=== PATIENT | female | born 1970 ===

== ENCOUNTER 2020-05-20 12:33 | Outpatient (REF) | payer MEDICAID, SELFPAY | END 2020-05-20 12:34 | disposition home or self-care (01) | LOC: HO.LAB 12:33 | PROVIDERS: PCP Internal Medicine; Visit Provider Internal Medicine | DX: Z20.828 Contact with and (suspected) exposure to other viral communicable diseases (principal) | CPT/HCPCS: 87635 ==

== ENCOUNTER 2023-12-27 13:39 | Outpatient (AMB) | payer MEDICAID, SELFPAY ==
--- NOTE | 2023-12-27 13:40 | MHC.OFFVIS ---
Vital Signs 12/27/23 14:01 Height 5 ft 2 in Weight 155 lb 6 oz BMI 28.4 BP 98/70 Blood Pressure Location Lt brachial Position Sitting Pulse 84 Pulse Source Pulse Oximeter Pulse Oximetry (%) 93 Oxygen Delivery Method Room Air Intake Visit Reasons: ENP-Chronic Insomnia-Unable to lvm Intake Note: Patient presents for chronic Insomnia. Difficulty falling asleep and staying at sleep. Snoring sometimes. Sometimes when sleeping on my back I gasp for air. Feel pins on my legs. I got a CPAP machine a few years ago but no mask. Never follow up to get mask and don't remember the company name. Allergies sumatriptan [From [facility]] Allergy (Intermediate, Unverified 04/22/20 18:34) ITCHING Medication List - Last Reconciled 12/27/23 by KEVIN Moe atorvastatin 20 mg PO DAILY duloxetine 30 mg PO DAILY escitalopram oxalate 10 mg PO DAILY olanzapine 5 mg PO BEDTIME omeprazole 40 mg PO DAILY topiramate 25 mg PO BID warfarin 5 mg PO DAILY zolpidem 10 mg PO BEDTIME PRN HPI Comments Details: 53-yr-old female presents for new in-person patient visit for sleep consultation. Pt reports she has had difficulty sleeping ever since she went through [facility] for breast CA tx 10 yrs ago. She has difficulty both w/ initiating and maintaining sleep. Since, she has been on Ambien (now 10mg) since the chemotherapy tx. The Ambien used to work, but it is not working as well- does not make her sleep. Sleep questionnaire: Have you ever been diagnosed with a sleep disorder? Yes Have you ever had a sleep study in the past? Yes- an in-lab PSG- was given a CPAP > 5 yrs ago, but was never given a mask so could not use it. Have you ever been treated for a sleep disorder? Yes Do you take medications for a sleep disorder? Melatonin 1-2 hr before bed- did not help. Amitriptyline 25mg- ineffective. Trazodone, Gabapentin- ineffective. Using Topiramate 25mg bid- for migraine- usually no migraines if she takes it consistently or if not stressed- does not m make her sleepy. Do you snore? Yes Do you wake up gasping at night? Has Do you have episodes of apneas? Yes If yes, are they witnessed? Yes Do you have episodes of nocturnal chest pain or dyspnea? No Do you have difficulty initiating sleep? Yes Do you have difficulty maintaining sleep? Yes Do you wake up tired? Yes Do you have headaches upon awakening? Sometimes Do you wake up with dry mouth or throat? Yes Do you have GERD? Yes Do you have daytime tiredness or fatigue? Yes Do you have nocturnal leg cramps? Yes- at times Do you have symptoms of restless legs? She is prone to restless legs- has to move, like there are pins in her legs, sometimes has creepy crawling sensation. Endorses this can interfere w/ her sleep. Has anemia. Do you act out your dreams? Sometimes talks in her sleep. Some vivid dreams. Other parasomnias: Denies sleep paralysis. Sleep hygiene questionnaire: What is your usual sleep routine? Usual bedtime is at after 12am; Usual wakeup time is at around 11am- but has a hard time waking up. Do you take naps? Only if she has a migraine. Is your sleep environment cool, dark, and quiet? It is dark Do you exercise? None Do you take caffeine or other stimulants? Coke- a lot - last serving around 10pm Do you use electronics in bed? Watches TV- usually as background noise. What is your work schedule? Not working. Tries to schedule things later. Hypersomnolence questionnaire: Do you easily fall asleep when inactive? Have you ever had episodes of sudden weakness? A few months ago- she just fainted- twice back to back. She is clumsy and drops things- has shannon CTS. Have you ever had episodes of sudden weakness associated with strong emotions? Has not noticed. [facility] Surgical History (Updated 10/03/21 @ 15:26 by Nena Webber) H/O tubal ligation H/O lumpectomy Family History (Updated 12/27/23 @ 14:00 by Ashanti Canada CMA) Maternal Grandmother Dementia Social History (Updated 12/27/23 @ 14:01 by Ashanti Canada CMA) Household Members: Children Housing: House Alcohol intake: current Comment: Ocassionally Patient Tobacco Use Status: Never used Tobacco Physical Exam Vital Signs: Last Vital Signs Pulse 84 12/27/23 14:01 BP 98/70 12/27/23 14:01 Pulse Ox 93 12/27/23 14:01 Oxygen Delivery Method Room Air 12/27/23 14:01 BMI result Body Mass Index 28.4 Const General: no acute distress Orientation/consciousness: patient oriented x3 Resp Effort & Inspection: able to speak in complete sentences Neuro General: patient oriented x3 Psych Mental Status: mental status grossly normal Speech and movement: Clear speech present Attitude: cooperative Assessment & Plan Assessment & Plan (1) Snoring: Code(s): R06.83 - Snoring Category: Medical (2) Sleep difficulties: Code(s): G47.9 - Sleep disorder, unspecified Category: Medical (3) Restless leg syndrome: Code(s): G25.81 - Restless legs syndrome Category: Medical (4) Fatigue: Comment: ESS is 6, however pt spends > 10-11 hrs in bed per day Code(s): R53.83 - Other fatigue Category: Medical (5) Leg cramps: Code(s): R25.2 - Cramp and spasm Category: Medical Plan Trial Pregabalin 50mg cap, 1-3 caps qhs (or alternately 1 cap 2 hrs before bed and 1-2 caps at bedtime)- in hopes this alleviates RLS s/s and thus promotes improved sleep efficiency and reducing need for prolonged time in bed/sleep need. This may help headaches as well. Discussed strategies to optimize sleep hygiene- reducing Coke or caffeine intake to no later than 6 hrs before bedtime. Pt advised to undergo: Labs to check for common etiologies for RLS s/s. In-lab PSG to assess for sleep apnea and PLMS. If syncopal episode reoccurs- pt will need syncopal work-up. Pt seen in c/w Dr Rayna Lopez. Orders: Orders Complete Blood Count Auto Diff 12/27/23 D64.9 - Anemia, unspecified, F32.A - Depression, unspecified, G25.81 - Restless legs syndrome, M25.50 - Pain in unspecified joint, R25.2 - Cramp and spasm, R53.83 - Other fatigue Methylmalonic Acid 12/27/23 D64.9 - Anemia, unspecified, F32.A - Depression, unspecified, G25.81 - Restless legs syndrome, M25.50 - Pain in unspecified joint, R25.2 - Cramp and spasm, R53.83 - Other fatigue Homocysteine 12/27/23 D64.9 - Anemia, unspecified, F32.A - Depression, unspecified, G25.81 - Restless legs syndrome, M25.50 - Pain in unspecified joint, R25.2 - Cramp and spasm, R53.83 - Other fatigue IRON PROFILE 12/27/23 D64.9 - Anemia, unspecified, F32.A - Depression, unspecified, G25.81 - Restless legs syndrome, M25.50 - Pain in unspecified joint, R25.2 - Cramp and spasm, R53.83 - Other fatigue Ferritin 12/27/23 D64.9 - Anemia, unspecified, F32.A - Depression, unspecified, G25.81 - Restless legs syndrome, M25.50 - Pain in unspecified joint, R25.2 - Cramp and spasm, R53.83 - Other fatigue CRP High Sensitivity 12/27/23 D64.9 - Anemia, unspecified, F32.A - Depression, unspecified, G25.81 - Restless legs syndrome, M25.50 - Pain in unspecified joint, R25.2 - Cramp and spasm, R53.83 - Other fatigue DAMIR Reflex Titer and Pattern 12/27/23 D64.9 - Anemia, unspecified, F32.A - Depression, unspecified, G25.81 - Restless legs syndrome, M25.50 - Pain in unspecified joint, R25.2 - Cramp and spasm, R53.83 - Other fatigue Hemoglobin A1c 12/27/23 D64.9 - Anemia, unspecified, F32.A - Depression, unspecified, G25.81 - Restless legs syndrome, M25.50 - Pain in unspecified joint, R25.2 - Cramp and spasm, R53.83 - Other fatigue RT PSG in-lab sleep study 12/27/23 G25.81 - Restless legs syndrome, G47.9 - Sleep disorder, unspecified, R06.83 - Snoring, R53.83 - Other fatigue Comprehensive Met. Panel 12/27/23 D64.9 - Anemia, unspecified, F32.A - Depression, unspecified, G25.81 - Restless legs syndrome, M25.50 - Pain in unspecified joint, R25.2 - Cramp and spasm, R53.83 - Other fatigue Vitamin B12 and Folate 12/27/23 D64.9 - Anemia, unspecified, F32.A - Depression, unspecified, G25.81 - Restless legs syndrome, M25.50 - Pain in unspecified joint, R25.2 - Cramp and spasm, R53.83 - Other fatigue Erythrocyte Sedimentation Rate 12/27/23 D64.9 - Anemia, unspecified, F32.A - Depression, unspecified, G25.81 - Restless legs syndrome, M25.50 - Pain in unspecified joint, R25.2 - Cramp and spasm, R53.83 - Other fatigue Creatine Kinase Total 12/27/23 D64.9 - Anemia, unspecified, F32.A - Depression, unspecified, G25.81 - Restless legs syndrome, M25.50 - Pain in unspecified joint, R25.2 - Cramp and spasm, R53.83 - Other fatigue TSH reflex Free T4 12/27/23 D64.9 - Anemia, unspecified, F32.A - Depression, unspecified, G25.81 - Restless legs syndrome, M25.50 - Pain in unspecified joint, R25.2 - Cramp and spasm, R53.83 - Other fatigue Vitamin D 25-OH (D2 and D3) 12/27/23 D64.9 - Anemia, unspecified, F32.A - Depression, unspecified, G25.81 - Restless legs syndrome, M25.50 - Pain in unspecified joint, R25.2 - Cramp and spasm, R53.83 - Other fatigue Rheumatoid Factor 12/27/23 D64.9 - Anemia, unspecified, F32.A - Depression, unspecified, G25.81 - Restless legs syndrome, M25.50 - Pain in unspecified joint, R25.2 - Cramp and spasm, R53.83 - Other fatigue Medications: New pregabalin 50 mg PO TID 90 caps 2RF 30 days Discontinued amitriptyline Discontinued Reason: Patient no longer taking 25 mg PO BEDTIME 30 days 30 tabs 0RF Coding Level of Care Code New Pt Level 4 (75111) Diagnoses Snoring R06.83 Sleep difficulties G47.9 Restless leg syndrome G25.81 Fatigue R53.83 Leg cramps R25.2 [place] Sleepiness Scale Questions Sitting and reading: would never doze Watching TV: moderate chance of dozing Sitting inactive in a theater, movie etc.: would never doze As a passenger in a car for an hour without break: would never doze Lying down in the afternoon when circumstances permit: moderate chance of dozing Sitting and talking to someone: would never doze Sitting quietly after lunch without alcohol: moderate chance of dozing In a car, while stopped for a few minutes in the traffic: would never doze ESS < 10: normal, ESS > 12: pathologic: 6
[2023-12-27 14:01] VITALS: BP 98/70; PULSE 84; O2SAT 93; BMI 28.4
== END 2023-12-27 15:09 | disposition home or self-care (01) ==
PROVIDERS: PCP Internal Medicine; Visit Provider Nurse Practitioner Family
DX: R06.83 Snoring (principal); G47.9 Sleep disorder, unspecified; G25.81 Restless legs syndrome; R53.83 Other fatigue; R25.2 Cramp and spasm
CPT/HCPCS: 99204

== ENCOUNTER → 2023-12-27 13:39 | Outpatient (BNVA) | payer MEDICAID, SELFPAY | PROVIDERS: PCP Internal Medicine; Visit Provider Nurse Practitioner Family | DX: G47.9 Sleep disorder, unspecified (principal); G25.81 Restless legs syndrome; R06.83 Snoring; R53.83 Other fatigue; R25.2 Cramp and spasm | CPT/HCPCS: 99212 ==

== ENCOUNTER 2023-12-27 15:14 | Outpatient (REF) | payer MEDICAID, SELFPAY ==
[2023-12-27 17:29] LABS: MANUAL DIFF FLAG NO
[2023-12-27 17:33] LABS: Basophils Absolute Auto 0.1 X10*3/uL (0.0-0.2); Basophils Percent Auto 1.7 % (0-2); Eosinophils Absolute Auto 0.5 X10*3/uL (0.0-0.4); Eosinophils Percent Auto 10.1 % (0-4); Hematocrit 33.6 % (37.0-47.0); Hemoglobin 11.3 g/dl (12.0-16.0); Imm Gran Abs Auto 0.01 X10*3/uL (0.00-0.03); Imm Gran Pct Auto 0.2 % (0.0-0.4); Lymphocytes Absolute Auto 1.7 X10*3/uL (1.2-4.9); Lymphocytes Percent Auto 31.5 % (20-40); Mean Corpuscular HGB Conc 33.6 g/dl (31.0-35.0); Mean Corpuscular Hemoglobin 28.9 pg (27.0-33.0); Mean Corpuscular Volume 85.9 fL (80.0-98.0); Mean Platelet Volume 9.3 fL (9.4-12.3); Monocytes Absolute Auto 0.5 X10*3/uL (0.1-1.2); Monocytes Percent Auto 10.2 % (2-11); Neutrophils Absolute Auto 2.4 x10*3/uL (2.0-8.3); Neutrophils Percent Auto 46.3 % (45-73); Platelet Count 345 X10*3/uL (160-400); Red Blood Count 3.91 X10*6/uL (4.20-5.50); Red Cell Distribution Width 13.4 % (11.0-16.0); White Blood Count 5.3 X10*3/uL (4.8-10.8)
[2023-12-27 18:13] LABS: Alanine Aminotransferase 10 U/L (0-31); Albumin Level 3.9 g/dL (3.5-5.0); Alkaline Phosphatase 95 U/L (39-117); Anion Gap 15 (12-20); Aspartate Amino Transferase 14 U/L (5-31); Bilirubin Total 0.2 mg/dL (0.0-1.0); Blood Urea Nitrogen 14 mg/dL (9-16); Calcium 9.2 mg/dL (8.4-10.2); Carbon Dioxide 23 mmol/L (22-29); Chloride 108 mmol/L (96-108); Estimated Glomerular Filt Rate > 60; Glucose Random 83 mg/dL (60-115); Iron 40 mcg/dL (30-160); Percent Iron Saturation 13 % (15-50); Potassium 3.9 mmol/L (3.3-5.1); Sodium 142 mmol/L (135-145); Total Iron Binding Capacity 310 mcg/dL (228-428); Total Protein 8.2 g/dL (6.5-8.0); Unsaturated Iron Binding 270 ug/dL
[2023-12-27 18:14] LABS: Erythrocyte Sedimentation Rate 49 MM/HR (0-20)
[2023-12-27 18:17] LABS: Ferritin 22 ng/mL (10-250)
[2023-12-27 18:31] LABS: Folate 11.5 ng/mL (> or = 4.0); Vitamin B12 668 pg/mL (200-900)
[2023-12-28 05:28] LABS: Estimated Average Glucose 111 mg/dL; Hemoglobin A1C 106.4489 umol/L; Hemoglobin A1c % 5.5 % (<6.0)
[2023-12-28 14:48] LABS: CRP High Sensitivity 2.9 mg/L
[2023-12-30 17:13] LABS: Methylmalonic Acid 197 nmol/L (87-318)
[2024-01-02 14:39] LABS: Anti Nuclear Antibody Pattern Nuclear, Speckled; Anti Nuclear Antibody Screen POSITIVE (NEGATIVE)
== END 2023-12-27 15:15 | disposition home or self-care (01) ==
LOC: HO.HKASLDS 15:14
PROVIDERS: Visit Provider Nurse Practitioner Family
DX: R25.2 Cramp and spasm (principal); D64.9 Anemia, unspecified; R53.83 Other fatigue; G25.81 Restless legs syndrome; F32.A Depression, unspecified; M25.50 Pain in unspecified joint
CPT/HCPCS: 36415; 80053; 82306; 82607; 82728; 82746; 83036; 83540; 83921; 84443; 85025; 85652; 86038; 86039; 86141; 86704; 86706; 87340; 99212

== ENCOUNTER → 2024-01-14 20:30 | Outpatient (REF) | payer MEDICAID, SELFPAY | LOC: HO.SL 20:30 | PROVIDERS: PCP Internal Medicine; Visit Provider Nurse Practitioner Family | DX: G47.9 Sleep disorder, unspecified (principal); G25.81 Restless legs syndrome; R06.83 Snoring; R53.83 Other fatigue | CPT/HCPCS: 95810 ==

== ENCOUNTER → 2024-01-14 21:47 | Outpatient (BNV) | payer MEDICAID, SELFPAY | PROVIDERS: PCP Internal Medicine; Visit Provider Psychiatry & Neurology Neurology | DX: R06.83 Snoring (principal) | CPT/HCPCS: 95810 ==